=== PATIENT | male | born 1970 | race Caucasian/White ===

== ENCOUNTER 2017-04-03 13:59 | Observation (INO) | payer MEDICAID ==
[~2017-04-03] VITALS: Ht 190.5 cm; Wt 124.1 kg
--- NOTE | ~2017-04-03 | EKG ---
PATIENT: SANDOR LYNNE UNIT #: [id number] Ventricular Rate: 71 BPM Atrial Rate: 71 BPM P-R Interval: 188 ms QRS Duration: 164 ms Q-T Interval: 466 ms QTC Calculation(Bezet): 506 ms P Pruden: 25 degrees Calculated R Pruden: 9 degrees Calculated T Pruden: 158 degrees Diagnosis Line: Normal sinus rhythm Diagnosis Line: Left bundle branch block Diagnosis Line: Abnormal ECG Diagnosis Line: No previous ECGs available Diagnosis Line: Confirmed by JOJO LEÓN MD ([id number]) on Diagnosis Line: 04/03/2017 3:34:16 PM INTERPRETING MD: OMA
--- NOTE | ~2017-04-03 | EKG ---
PATIENT: SANDRO LYNNE UNIT #: [id number] Ventricular Rate: 60 BPM Atrial Rate: 60 BPM P-R Interval: 206 ms QRS Duration: 178 ms Q-T Interval: 528 ms QTC Calculation(Bezet): 528 ms P Malabar: 20 degrees Calculated R Malabar: 25 degrees Calculated T Malabar: 141 degrees Diagnosis Line: Normal sinus rhythm Diagnosis Line: Left bundle branch block Diagnosis Line: Abnormal ECG Diagnosis Line: When compared with ECG of 03-APR-2017 14:03, Diagnosis Line: No significant change was found Diagnosis Line: Confirmed by JOJO LEÓN MD ([id number]) on Diagnosis Line: 04/04/2017 10:38:29 PM INTERPRETING MD: OMA
--- NOTE | ~2017-04-03 | CO ---
Unit #: [id number] #: [id number] Patient: SANDOR LYNNE [id number] [address] [address] [id number] I MR#: [id number] NAME: SANDOR LYNNE. ROOM: [facility] Age: 46 Sex: M Admission Date: 04/03/2017 : 1970 Attending Physician: Deangelo Navarrete M.D. Primary Care Physician: No Primary Care Physician Consultation Date: 04/04/2017 CONSULTATION REPORT REASON FOR CONSULTATION Diabetes. HISTORY OF PRESENT ILLNESS The patient is a 46-year-old male with a past medical history of diabetes, hypertension, hypertrophic obstructive cardiomyopathy, bipolar disorder, obstructive sleep apnea and hyperlipidemia, who was admitted by Dr. Navarrete on 04/03/2017 for chest pain. The patient states that he has had intermittent chest pain. He states that he noticed it to be worse on the day of admission. He states that it was in the mid chest. He described it as "pressure." It radiated to the left arm with no exacerbating or alleviating factors. He denies any fever or cough. No orthopnea. No paroxysmal nocturnal dyspnea. He has had a 60 pound weight loss over the past year that he attributes to increased activity at work. He denies any lower extremity swelling. In the emergency department EKG was done and showed normal sinus rhythm as well as left bundle branch block which is chronic. Initial cardiac enzymes were negative. The patient had an echocardiogram that showed an ejection fraction of 30%-35%. HIPS was consulted for diabetes. The patient states that he has previously been on Janumet as well as Levemir. He has not taken any diabetes medications for over 18 months due to lack of insurance. He states that he checks his blood sugars intermittently and they are typically in the 200s. He does report increased thirst as well as frequent urination. Blood glucose since admission has been 185, 188. PAST MEDICAL HISTORY 1. Hypertrophic obstructive cardiomyopathy, status post myomectomy. The patient states that he has seen multiple cardiologists in the past, but is not currently seeing anyone as an outpatient. 2. Chronic left bundle branch block. 3. Hypertension. 4. Hyperlipidemia. 5. Congestive heart failure with ejection fraction of 30%-35% noted on echocardiogram 05/07/2016. 6. Bipolar disorder. 7. Diabetes. 8. Obstructive sleep apnea, noncompliant with CPAP. PAST SURGICAL HISTORY 1. Myomectomy. Unit #: [id number] #: [id number] Patient: SANDOR LYNNE 2. Cholecystectomy. 3. Ankle surgery. 4. Shoulder surgery. 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 He smokes marijuana. He states that he drinks most days, anywhere from a few beers to a six pack or more. He denies ever going through withdrawal. He states that he is very active at work and typically walks more than 10,000 steps a day. FAMILY HISTORY Notable for his mother having leukemia. She also had a pacemaker. His dad had some type of malignancy as well as dementia. ALLERGIES No known drug allergies. HOME MEDICATIONS 1. The patient has not been taking any diabetic medications for the past 18 months. 2. He also stopped taking blood pressure pills. REVIEW OF SYSTEMS A complete review of systems is negative except as indicated in the history of present illness. PHYSICAL EXAMINATION GENERAL: The patient is a very pleasant male who is awake and alert, in no acute distress. VITALS: Temperature 98, pulse 63, respiratory rate 19, blood pressure 119/75, oxygen saturation 96% on room air. HEENT: The head is atraumatic. Mucous membranes are moist. NECK: Supple. Trachea midline. LUNGS: Clear to auscultation bilaterally with no increased work of breathing. HEART: Regular rate and rhythm. He does have a 3/6 systolic ejection murmur. ABDOMEN: Soft, nontender with bowel sounds present in all four quadrants. EXTREMITIES: Nontender with no pedal edema. NEUROLOGIC: The patient is awake and alert. He follows commands. PSYCHIATRIC: Mood and affect are normal. The patient is cooperative. SKIN: Skin of examined areas is warm and dry. DIAGNOSTIC STUDIES IMAGING: Chest x-ray showed mild cardiac enlargement. LABORATORY: Troponin is 0.04. CMP notable for glucose 185, CBC notable for hemoglobin 16.1, hematocrit 46. CARDIOVASCULAR: EKG shows normal sinus rhythm with a rate of 60 beats per minute. Left bundle branch block is also present. He was previously noted to have a left bundle branch block on EKG from 05/09/2016. ASSESSMENT The patient is a 46-year-old male with 1. Chest pain. The patient was admitted by cardiology. They do not think that it is cardiac in nature. 2. Diabetes. The patient was previously on Janumet as well as Levemir, Unit #: [id number] #: [id number] Patient: SANDOR LYNNE but has not been taking any diabetes medications for at least 18 months. He states that his blood sugars are typically in the 200s. Here they have been around 180. 3. Hypertension. 4. Congestive heart failure with ejection fraction 30%-35% noted on echocardiogram from 05/07/2016. 5. History of hypertrophic obstructive cardiomyopathy, status post myomectomy. 6. Bipolar disorder. 7. Obstructive sleep apnea, noncompliant with CPAP. 8. Hyperlipidemia. 9. Alcohol abuse. 10. Obesity with a BMI of 34. 11. Chronic left bundle branch block. PLAN 1. Regarding diabetes, I have ordered a hemoglobin A1c. I have also restarted the patient on metformin. I have advised him to follow up with the transition clinic on 04/19/2017 at 9 o'clock. He will also be given a list of primary care providers. 2. Thank you very much for the consultation. We will follow the patient along closely with you. Dictated by... Lizett Robledo M.D. Angelic TD: 04/04/2017 13:17 JOB #: [id number] CONSULTATION REPORT Page 1 of 1 X Lizett Robledo MD X CONSULTATION REPORT
--- NOTE | ~2017-04-03 | HP ---
Unit #: [id number] #: [id number] Patient: SANDOR LYNNE [id number] [facility]. [place], [place] [address] [id number] MR#: [id number] NAME: SANDOR LYNNE. ROOM: [facility] Age: 46 Sex: M Admission Date: 04/03/2017 : 1970 Attending Physician: Deangelo Navarrete M.D. HISTORY AND PHYSICAL HISTORY OF PRESENT ILLNESS This is a 46-year-old white male who we have seen in the past here at [facility]. He has known hypertrophic obstructive cardiomyopathy. He has a history back about 15 years ago of having a myomectomy in [place]. He has chronic left bundle branch block. It is reported that six years ago in [place] he had a repeat cath that did not show any significant blockage. Last year he had a Lexiscan Cardiolite stress test which showed his EF was about 35%, no ischemia, and his LV cavity was dilated indicating dilated nonischemic cardiomyopathy. His echo also confirmed his EF of 30% to 35%. Patient came to the hospital with some chest pain. He has been having it for several hours. He is under a lot of stress at work. 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 He explained the pain as being a hard, pushing pressures. Sometimes it is waxing and waning. He gets a little short of breath. Denies any dizziness, diaphoresis, nausea, vomiting, diarrhea, or abdominal pain. No syncope or presyncope. Denies any recent cough, fever, or chills. In the emergency room, patient's blood pressure was found to be 153/82, heart rate 72, respirations 18, temperature 97.8, and O2 saturations 100% on room air. Chest x-ray showed nothing acute. His EKG does show a left bundle branch block and normal sinus rhythm. Patient was given Nitrostat and an aspirin. Patient says his chest pain is relieved, but he does have a headache. Patient admits to not taking any of his cardiac medications and/or followups with his PCP or bread distributor. Patient was admitted for further evaluation and management. PAST MEDICAL HISTORY 1. Hypertrophic obstructive cardiomyopathy status post myomectomy in [place] about 15 years ago that is reported by the patient and on previous dictations. 2. Chronic left bundle branch block. 3. Reports last cath about six years ago which was also in [place] that did not show any significant blockage. 4. Lexiscan Cardiolite stress test in April 2016 showed EF of 35%, no ischemia, and LV cavity moderately dilated both at rest and infusion, likely dilated nonischemic cardiomyopathy. 5. A 2D echo in April 2016 revealed LVEF of 30% to 35% and normal valves. 6. Diabetes mellitus. 7. Hypertension. 8. Hyperlipidemia. 9. Obstructive sleep apnea. 10. Degenerative joint disease. Unit #: [id number] #: [id number] Patient: SANDOR LYNNE 11. Osteoarthritis. 12. Alcohol abuse. 13. Bipolar. PAST SURGICAL HISTORY 1. Myomectomy in [place] about 15 years ago for the hypertrophic obstructive cardiomyopathy. 2. Cholecystectomy. 3. Nose surgery. 4. Right ankle surgery. 5. Left shoulder surgery. HOME MEDICATIONS None. ALLERGIES No known drug allergies. SOCIAL HISTORY Patient lives with his girlfriend and her children. Denies tobacco abuse. Drinks three to four hard liquor drinks a day. Does admit to some marijuana use. FAMILY HISTORY His mother has a pacemaker. Father and siblings are in generally well health. REVIEW OF SYSTEMS CONSTITUTIONAL: Denies fever or chills. No recent weight gain or weight loss. HEENT: Denies headache or dizziness. No visual or hearing changes. NECK: No lymphadenopathy or thyromegaly and no difficulty swallowing. CARDIOVASCULAR: Chest pressure present. Denies palpitations and denies increased lower extremity edema. PULMONARY: Slightly diminished but clear. ABDOMEN: Obese, soft, nontender. EXTREMITIES: Pedal pulses are palpable. Trace pedal edema. DIAGNOSTIC STUDIES LABORATORY: Glucose is 185, BUN 14, creatinine 1, eGFR 89.9, sodium 139, potassium 4.1, chloride 104, CO2 of 28, calcium 9.3, total protein 7, albumin 4.3, bilirubin total is 0.1, and bilirubin indirect 0.3. Initial cardiac enzymes: CK-MB is 3.2 and troponin less than 0.05; CK-MB is 2.7 and troponin less than 0.05, CK-MB is 4.9, percentage of MB 4.2, and troponin 0.04. IMAGING: Chest x-ray shows nothing acute. CARDIOLOGY: EKG shows normal sinus rhythm with a left bundle branch block. IMPRESSION 1. Chest pain, atypical. 2. Hypertrophic obstructive cardiomyopathy diagnosed 15 years, had a myomectomy in [place]. 3. Chronic left bundle branch block. 4. Hypertension. 5. Diabetes mellitus type 2. 6. Hyperlipidemia. Unit #: [id number] #: [id number] Patient: SANDOR LYNNE 7. Lexiscan Cardiolite stress test in April 2016 with ejection fraction of 35%, no ischemia, and LV cavity moderately dilated both at rest and post-exercise, likely dilated nonischemic cardiomyopathy. 8. A 2D echo in April 2016 showed left ventricular ejection fraction of 30% to 35% and normal valves. 9. Alcohol abuse. 10. Marijuana use. PLAN 1. Dr. Navarrete, after reviewing his records and him having a normal cath about six years ago and normal stress test last year and his symptoms are somewhat atypical, he will not proceed with any ischemic heart workup today unless his cardiac enzymes (1) . The last set is pending, and so far they are negative. EKG does not show anything acute. 2. Patient had a 2D echo less than a year ago. He has not been on any of his medications. Will restart him back on his metoprolol 25 mg p.o. twice daily, lisinopril 10 mg p.o. at bedtime, and pravastatin 40 mg p.o. daily. 3. The hospitalist saw the patient for management of diabetes mellitus, Dr. Robledo. She wrote a prescription for metformin 500 mg p.o. twice daily starting tomorrow. Also, he has an appointment to follow up in the [facility] on April 19, 2017, at 9 a.m. Also instruct the patient to follow up with Dr. Navarrete on May 25, at 2:15 p.m. 4. Wrote new prescriptions and [facility], Rosie, is going to help the patient go ahead and get them filled so he will have his medications. 5. On exam, there are no signs or symptoms of acute congestive heart failure. Patient states that he adheres to watching his fluids. 6. Instructed to follow up with his primary care doctor after the transition office visit, and they will help him set up (2) . 7. Encouraged compliance not only with his medication and activity, but also with followup with Cardiology. Assured him that all of his medications are generic and will hopefully be low cost. 8. Encouraged the patient to completely quit alcohol abuse. Offered to talk to Psychiatry or to Rehab if necessary. 9. Encouraged compliance with his medical management. 10. Encouraged to stop marijuana use. 1. Dictated by Priti HernadezPJosephRJosephNJoseph for Eugene Garay/victoria TD: 04/04/2017 14:08 JOB #: [id number] Unit #: [id number] #: [id number] Patient: SANDOR LYNNE HISTORY AND PHYSICAL Page 1 of 1 X Janis Pelayo APRN X HISTORY AND PHYSICAL
--- NOTE | ~2017-04-03 | CR72 ---
[facility] A Service of [facility] [place] RADIOLOGY TEXT RESULTS PATIENT: SANDOR LYNNE LOCATION: [facility] 561 : 70 UNIT #: [id number] AGE: [address]: Deangelo Navarrete MD SEX: M ORDER DR: [id number] [facility] [address], [place] [address] [id number] I MR#: [id number] Acc #: [id number] NAME: SANDOR LYNNE. : 1970 SEX: M STUDY DATE/TIME: 04/03/2017 17:33 UNIT: [facility] ROOM: [facility] STUDY DESCRIPTION: CR Chest Single View Portable Attending Physician: Deangelo Navarrete M.D. Referring Physician: Jourdan Sales M.D. Ordering Physician: Ed Shakeel Langley M.D. Primary Care Physician: No Primary Care Physician MEDICAL IMAGING REPORT This report is preliminary unless electronic signature is present EXAM Portable chest x-ray, single-view. CLINICAL HISTORY Chest pain starting today. History of diabetes. COMMENT Single frontal portable view of the chest timed 17:33 on 04/03/2017. COMPARISON Compared to 05/06/2016. FINDINGS There is mild postoperative cardiac silhouette enlargement. No acute-appearing parenchymal infiltrate or acute congestive failure. There is no pneumothorax or pleural effusion suspected. IMPRESSION Mild postoperative cardiac silhouette enlargement. Otherwise no active disease. Dictated by... Marley Sanders M.D. THIS IS AN ELECTRONICALLY VERIFIED REPORT Marley Sanders M.D. at 04/04/2017 2:45 PM ABNER/ralph TD: 04/03/2017 23:59 JOB #: [id number] MEDICAL IMAGING REPORT [facility] A Service [facility] RADIOLOGY TEXT RESULTS PATIENT: SANDOR LYNNE LOCATION: [facility] 561 : 70 UNIT #: [id number] AGE: [address]: Deangelo Navarrete MD SEX: M ORDER DR: Page 1 of 1 COPY
[~2017-04-03 13:59] MED LIST: ASPIRIN81 MG PO; LIPITOR PO; LISINOPRIL2.5 MG PO; METOPROLOL TAR25 MG PO; NO MEDICATIONS; TOPROL XL PO
[2017-04-03 15:26] LABS: BASOPHIL# 0.1 X10e3 (0-0.3); BASOPHIL% 0.6 % (0-2.5); EOSINOPHIL# 0.2 X10e3 (0-0.7); EOSINOPHIL% 2.1 % (0.0-7.0); HEMOGLOBIN 16.1 gm/dL (13.0-16.0); LYMPHOCYTE# 2.1 X10e3 (1.0-3.5); LYMPHOCYTE% 21.9 % (17.0-45.0); MEAN CELL VOLUME 84.2 FL (83-96); MEAN CORPUSCULAR HEMOGLOBIN 29.4 PG (28-34); MEAN CORPUSCULAR HGB CONC 34.9 g/dL (30-36); MEAN PLATELET VOLUME 7.3 FL (6.5-11.5); MONOCYTE# 0.6 X10e3 (0-1.0); MONOCYTE% 6.2 % (3.0-12.0); NEUTROPHIL# 6.8 X10e3 (1.5-7.1); NEUTROPHIL% 69.2 % (40-75); PLATELET COUNT 243 X10e3 (140-420); RED BLOOD COUNT 5.46 X10e (3.90-5.60); WHITE BLOOD COUNT 9.8 X10e3 (4.0-10.5)
[2017-04-03 15:29] LABS: DIFF IND NO
[2017-04-03 15:42] LABS: POC - CKMB 3.2 ng/mL (0.0-7.9); POC - TROPONIN <0.05 ng/mL (<=0.05)
[2017-04-03 15:53] LABS: ALBUMIN SERUM 4.3 g/dL (3.5-5.0); BILIRUBIN, DIRECT 0.1 mg/dL (0.0-0.2); BILIRUBIN,INDIRECT 0.3 mg/dL (0.0-0.9); BILIRUBIN,TOTAL 0.4 mg/dL (0.2-2.0); CALCIUM SERUM 9.3 mg/dL (8.4-10.2); GLOM FILT RATE Estimated 89.9 mL/min (>60); POTASSIUM 4.1 mmol/L (3.5-5.1)
[2017-04-03 17:21] LABS: POC - CKMB 2.7 ng/mL (0.0-7.9); POC - TROPONIN <0.05 ng/mL (<=0.05)
[2017-04-03] MEDS ORDERED: NO MEDICATIONS (22:50)
[2017-04-04 00:19] LABS: %MB 4.2 % (0.0-4.0); MB 4.9 ng/ml
[2017-04-04 08:26] LABS: %MB 4.5 % (0.0-4.0); MB 4.1 ng/ml
[2017-04-04] MEDS ORDERED: ACETAMINOPHEN PO (13:57)
[2017-04-04] MEDS ORDERED: LOPRESSOR PO (13:58)
[2017-04-04] MEDS ORDERED: ATORVASTATIN CA10 MG PO (13:59)
[2017-04-04] MEDS ORDERED: ZESTRIL10 M1 PO (14:10)
[2017-04-04] MEDS ORDERED: ASPIRIN81 MG PO (14:10)
[2017-04-04] MEDS ORDERED: PRILOSEC PO (14:11)
[2017-04-04] MEDS ORDERED: METFORMIN HCL500 M1 PO (14:12)
== END 2017-04-04 14:53 | disposition home or self-care (01) | DRG 313 ==
LOC: CED 13:59 → CEDOF 18:25 → CED 18:52 → C5B 18:52 → CEDOF 18:52 → C5B 19:44 → CEDOF 19:44 → C5B 04-04 14:53
PROVIDERS: Emergency Medicine; Internal Medicine Cardiovascular Disease
DX: R07.89 Other chest pain (principal); Q24.8 Other specified congenital malformations of heart; I44.7 Left bundle-branch block, unspecified; I11.0 Hypertensive heart disease with heart failure; I50.9 Heart failure, unspecified; E11.9 Type 2 diabetes mellitus without complications; E78.5 Hyperlipidemia, unspecified; R94.39 Abnormal result of other cardiovascular function study; F10.10 Alcohol abuse, uncomplicated; F12.90 Cannabis use, unspecified, uncomplicated; F31.9 Bipolar disorder, unspecified; G47.33 Obstructive sleep apnea (adult) (pediatric); E66.9 Obesity, unspecified; F17.210 Nicotine dependence, cigarettes, uncomplicated; Z68.34 Body mass index [BMI] 34.0-34.9, adult; Z90.49 Acquired absence of other specified parts of digestive tract
CPT/HCPCS: 36415; 71010; 80048; 80076; 82550; 82553; 82947; 84484; 85025; 93005; 99285; G0378; J1815

== ENCOUNTER → 2017-04-19 | Outpatient (CLI) | payer MEDICAID ==
[~2017-04-19] MED LIST changes: +ACETAMINOPHEN PO; +ATORVASTATIN CA10 MG PO; +LOPRESSOR PO; +METFORMIN HCL500 M1 PO; +PRILOSEC PO; +ZESTRIL10 M1 PO
== END | disposition home or self-care (01) ==
LOC: CBAR 09:23
DX: E11.9 Type 2 diabetes mellitus without complications (principal); Z79.84 Long term (current) use of oral hypoglycemic drugs; I42.1 Obstructive hypertrophic cardiomyopathy; E78.5 Hyperlipidemia, unspecified; G47.33 Obstructive sleep apnea (adult) (pediatric)
CPT/HCPCS: 82947